=== PATIENT | male | born 1985 | race Caucasian/White ===

== ENCOUNTER 2019-03-24 02:07 | Emergency (ER) | payer OTHER ==
[~2019-03-24] VITALS: Ht 175.3 cm; Wt 81.7 kg
[2019-03-24 02:14] VITALS: BP 129/95
[2019-03-24] MEDS ORDERED: AMOXICILLIN 50500 M1 PO (02:21)
[2019-03-24] MEDS ORDERED: MOBIC15 MG PO (02:22)
== END 2019-03-24 02:55 | disposition home or self-care (01) ==
LOC: ER 02:07
DX: H66.91 Otitis media, unspecified, right ear (principal)